=== PATIENT | female | born 1985 | race American Indian/Alaskan Native ===

== ENCOUNTER 2016-09-11 04:57 | Emergency (ER) | payer MEDICAID ==
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
[2016-09-11] MEDS ORDERED: NORCO 5/325 PO ONE ×2 (08:06→08:59)
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
[2016-09-11] MEDS ORDERED: TORADOL IM ONE (08:19)
[2016-09-11] MEDS ORDERED: BENADRYL PO ONE (08:59)
[2016-09-11] MEDS ORDERED: VALIUM PO ONE (09:03)
--- NOTE | 2016-09-11 09:09 | XRay Report ---
Bilateral rib series: Trauma, pain. The patient has a severe S-shaped scoliosis convex to the right in the thoracic spine and to the left in the thoracolumbar spine. There are no structural abnormalities identified in the vertebral bodies other than right sided wedging of the L2 body. There is no rib fracture identified and no displacement or other bone lesion. The lungs are grossly clear and well inflated. Normal mediastinal contour. Impression: No acute finding; no fracture.
--- NOTE | 2016-09-11 09:30 | XRay Report ---
FACIAL BONES, 4 views: Multiple views of the facial bones fail to show any fractures or other bony abnormalities. The maxillary sinuses are clear. IMPRESSION: Normal study.
[2016-09-11 10:07] VITALS: BP 142/85
== END 2016-09-11 10:06 | disposition home or self-care (01) ==
LOC: ED 04:57
DX: S00.81XA Abrasion of other part of head, initial encounter (principal); S00.511A Abrasion of lip, initial encounter; R07.89 Other chest pain; R07.81 Pleurodynia; M19.90 Unspecified osteoarthritis, unspecified site; F17.200 Nicotine dependence, unspecified, uncomplicated; R03.0 Elevated blood-pressure reading, without diagnosis of hypertension; Y04.8XXA Assault by other bodily force, initial encounter; Y93.89 Activity, other specified; Y99.8 Other external cause status; Y92.89 Other specified places as the place of occurrence of the external cause
CPT/HCPCS: 70150; 71110; 93005; 93010; 99283; J1885

== ENCOUNTER 2017-09-12 14:57 | Emergency (ER) | payer MEDICAID, OTHER ==
[2017-09-12 15:21] VITALS: BP 124/74
[2017-09-12 16:01] LABS: Bacteria,Urine 1+ /HPF (Negative); Bilirubin,Urine NEG (Negative); Blood,Urine NEG (Negative); Color,Urine Yellow (Yellow); HCG Qualitative,Urine Negative (Negative); Mucus,Urine FEW /HPF; Protein,Urine <15 mg/dL mg/dL (Negative)
[2017-09-12] MEDS ORDERED: TORADOL IM ONE (16:13)
[2017-09-12] MEDS ORDERED: ZITHROMAX PO ONE (16:13)
[2017-09-12] MEDS ORDERED: ROCEPHIN IM ONE (16:13)
[2017-09-12] MEDS ORDERED: XYLOCAINE 1% MPF 5 mL INFILTRATI ONE (16:13)
--- NOTE | 2017-09-12 16:20 | Emergency Department Report ---
ED Back Pain/Injury HPI - General Chief Complaint: Back Pain/Injury Stated Complaint: LOWER BACK PAIN Time Seen by Provider: 09/12/17 15:29 Source: patient Limitations: No Limitations - History of Present Illness Initial Comments: This is a 32-year-old female nontoxic, well nourished in appearance, no acute signs of distress presents to the ED with c/o of acute on chronic lower back pain. Patient stated that the past 2 days she was moving and developed this pain. Patient states has history of sciatica nerve pain which is similar symptoms as today. Patient stated she follows a pain speciality for this. Patient states that pain radiates through to his left lower extremity. Patient denies any trauma. Denies any bladder or bowel instability. Denies any fever, chills, nausea, abdominal pain, vomiting, headache, stiff neck, chest pain or shortness of breath. Patient denies any numbness or tingling. Patient also stated has vaginal discharge with foul odor. Patient stated she is concerned about STD. Denies any allergies. Past medical history includes scoliosis and arthritis. MD Complaint: back pain -: days(s) (2) Similar Symptoms Previously: Yes Radiation: left leg Severity: mild Severity scale (0 -10): 8 Quality: aching Consistency: constant Improves With: immobilization, supine, sitting upright Worsens With: movement, walking Context: while lifting, turning/twisting Associated Symptoms: denies other symptoms. denies: confusion, weakness, chest pain, numbness, difficulty walking, cough, difficulty urinating, diaphoresis, incontinence, fever/chills, constipation, headaches, abdominal pain, loss of appetite, malaise, nausea/vomiting, rash, seizure, shortness of breath, syncope - Related Data Home Medications Medication Instructions Recorded Confirmed Last Taken Xanax TAB 1 mg PO DAILY 07/08/15 07/09/15 07/09/15 08:00 HYDROcodone/ACETAMINOPHEN 10 mg PO Q4-6H PRN 07/09/15 07/09/15 07/09/15 08:00 Tablet 1 tab PO DAILY 07/09/15 07/09/15 07/09/15 08:00 Valtrex 1 g PO DAILY 07/09/15 07/09/15 07/08/15 08:00 Previous Rx's Medication Instructions Recorded Last Taken Type ALPRAZolam [Xanax TAB] 1 mg PO BID PRN #60 tab 07/11/15 Unknown Rx ALPRAZolam [Xanax TAB] 1 mg PO BID PRN #60 tablet 07/11/15 Unknown Rx Azithromycin [Zithromax Z-LORRIE] 0 mg PO DAILY #6 tab 12/01/15 Unknown Rx HYDROcodone/APAP 5-325 [[place] 1 - 2 each PO Q6HR PRN #10 tablet 12/01/15 Unknown Rx 5/325] Zolpidem [Ambien] 5 mg PO QHS PRN #5 tablet 12/01/15 Unknown Rx Naproxen [Naprosyn] 500 mg PO BID PRN #20 tablet 09/11/16 Unknown Rx Cyclobenzaprine [Flexeril] 10 mg PO QHS PRN #7 tablet 09/12/17 Unknown Rx Ibuprofen [Motrin] 600 mg PO Q8H PRN #30 tablet 09/12/17 Unknown Rx metroNIDAZOLE [Flagyl] 500 mg PO Q12HR #14 tab 09/12/17 Unknown Rx Allergies Allergy/AdvReac Type Severity Reaction Status Date / Time No Known Allergies Allergy Verified 12/30/14 14:26 ED Review of Systems ROS: Stated complaint: LOWER BACK PAIN Other details as noted in HPI Constitutional: denies: chills, fever Eyes: denies: eye pain, eye discharge, vision change ENT: denies: ear pain, throat pain Respiratory: denies: cough, shortness of breath, wheezing Cardiovascular: denies: chest pain, palpitations Endocrine: no symptoms reported Gastrointestinal: denies: abdominal pain, nausea, diarrhea Genitourinary: denies: urgency, dysuria, discharge Musculoskeletal: back pain. denies: joint swelling, arthralgia Skin: denies: rash, lesions Neurological: denies: headache, weakness, paresthesias Psychiatric: denies: anxiety, depression Hematological/Lymphatic: denies: easy bleeding, easy bruising ED Past Medical Hx - Past Medical History Hx Hypertension: No Hx Congestive Heart Failure: No Hx Diabetes: No Hx Deep Vein Thrombosis: No Hx Renal Disease: No Hx Sickle Cell Disease: No Hx Arthritis: Yes (RA) Hx Seizures: No Hx Psychiatric Treatment: Yes (panic attacks,anxiety) Hx Asthma: No Hx COPD: No Hx HIV: No Additional medical history: DJD, scoliosis, A1 - Surgical History Past Surgical History?: No - Social History Smoking Status: Current Every Day Smoker Substance Use Type: Alcohol - Medications Home Medications: Home Medications Medication Instructions Recorded Confirmed Last Taken Type Xanax TAB 1 mg PO DAILY 07/08/15 07/09/15 07/09/15 08:00 History HYDROcodone/ACETAMINOPHEN 10 mg PO Q4-6H PRN 07/09/15 07/09/15 07/09/15 08:00 History Tablet 1 tab PO DAILY 07/09/15 07/09/15 07/09/15 08:00 History Valtrex 1 g PO DAILY 07/09/15 07/09/15 07/08/15 08:00 History ALPRAZolam [Xanax TAB] 1 mg PO BID PRN #60 tab 07/11/15 Unknown Rx ALPRAZolam [Xanax TAB] 1 mg PO BID PRN #60 tablet 07/11/15 Unknown Rx Azithromycin [Zithromax Z-LORRIE] 0 mg PO DAILY #6 tab 12/01/15 Unknown Rx HYDROcodone/APAP 5-325 [[place] 1 - 2 each PO Q6HR PRN #10 tablet 12/01/15 Unknown Rx 5/325] Zolpidem [Ambien] 5 mg PO QHS PRN #5 tablet 12/01/15 Unknown Rx Naproxen [Naprosyn] 500 mg PO BID PRN #20 tablet 09/11/16 Unknown Rx Cyclobenzaprine [Flexeril] 10 mg PO QHS PRN #7 tablet 09/12/17 Unknown Rx Ibuprofen [Motrin] 600 mg PO Q8H PRN #30 tablet 09/12/17 Unknown Rx metroNIDAZOLE [Flagyl] 500 mg PO Q12HR #14 tab 09/12/17 Unknown Rx ED Physical Exam - General Limitations: No Limitations General appearance: alert, in no apparent distress - Head Head exam: Present: atraumatic, normocephalic - Eye Eye exam: Present: normal appearance Pupils: Present: normal accommodation - ENT ENT exam: Present: normal exam, mucous membranes moist - Neck Neck exam: Present: normal inspection, full ROM. Absent: tenderness, meningismus, lymphadenopathy - Respiratory Respiratory exam: Present: normal lung sounds bilaterally. Absent: respiratory distress, wheezes, rales, rhonchi, stridor, chest wall tenderness, accessory muscle use, decreased breath sounds, prolonged expiratory - Cardiovascular Cardiovascular Exam: Present: regular rate, normal rhythm, normal heart sounds. Absent: irregular rhythm, systolic murmur, diastolic murmur, rubs, gallop - GI/Abdominal GI/Abdominal exam: Present: soft, normal bowel sounds. Absent: distended, tenderness, guarding, rebound, rigid, diminished bowel sounds - Rectal Rectal exam: Present: deferred - Extremities Exam Extremities exam: Present: normal inspection, full ROM, normal capillary refill - Back Exam Back exam: Present: normal inspection, full ROM, paraspinal tenderness (lumbar region). Absent: tenderness, CVA tenderness (R), CVA tenderness (L), muscle spasm, vertebral tenderness, rash noted - Expanded Back Exam Expanded Back exam: Absent: saddle anesthesia Back exam: Negative Straight Leg Raising: Left, Right - Neurological Exam Neurological exam: Present: alert, oriented X3, normal gait - Psychiatric Psychiatric exam: Present: normal affect, normal mood - Skin Skin exam: Present: warm, dry, intact, normal color. Absent: rash ED Course Vital Signs 09/12/17 15:16 Temperature 98.4 F Pulse Rate 97 H Respiratory 16 Rate Blood Pressure 124/74 O2 Sat by Pulse 98 Oximetry - Reevaluation(s) Reevaluation #1: 09/12/17 16:19 Patient is speaking in full sentences with no signs of distress noted. ED Medical Decision Making - Medical Decision Making This is a 32-year-old female that presents with exacerbation chronic of back pain and vaginal discharge. Patient is stable was examined by me. Patient refused a pelvic exam and stated she just wants to be treated empirically because she has to go to work. I will treat patient with azith and rocephine as she stated she is concerned about STD and also Flagyl at discharge. There is no spinal tenderness. There is no cauda equina syndrome during examination. No bladder or bowel instability. Patient received Toradol 60 mg IM in the ED which preceded his symptoms has resolved and subsided. Patient is discharged with muscle relaxant and Motrin. Patient was instructed not to operate any machinery while taking muscle relaxant as they cause her drowsiness. Patient was referred to Follow-up with a primary care doctor in 3-5 days or if symptoms worsen and continue return to emergency room as soon as possible. At time of discharge, the patient does not seem toxic or ill in appearance. No acute signs of distress noted. Patient agrees to discharge treatment plan of care. No further questions noted by the patient. This chart is dictated with using [employer] Critical care attestation.: If time is entered above; I have spent that time in minutes in the direct care of this critically ill patient, excluding procedure time. ED Disposition Clinical Impression: Exacerbation of chronic back pain, Vaginal discharge Disposition: TO HOME OR SELFCARE Is pt being admited?: No Does the pt Need Aspirin: No Condition: Stable Instructions: Chronic Back Pain (ED), Metronidazole (By mouth), Cyclobenzaprine (By mouth), Ibuprofen (By mouth) Additional Instructions: Follow-up with your primary care doctor in 3-5 days or if symptoms worsen such as bladder or bowel stability, chest pain, short of breath, numbness or tingling sensation in extremities, headache, dizziness, visual changes, nausea vomiting, or abdominal pain, return back to emergency room as was possible. Take ibuprofen and Flexeril as prescribed. Do not operate heavy machinery while taking Flexeril due to sedation Do not consume ant alcohol while taking antibiotics Prescriptions: Cyclobenzaprine [Flexeril] 10 mg PO QHS PRN #7 tablet PRN Reason: Muscle Spasm Ibuprofen [Motrin] 600 mg PO Q8H PRN #30 tablet PRN Reason: Pain metroNIDAZOLE [Flagyl] 500 mg PO Q12HR #14 tab Referrals: PRIMARY CARE, [Primary Care Provider] - 3-5 Days NATASHA DASILVA MD [Staff Physician] - 3-5 Days [facility] [Outside] - 3-5 Days [facility] [Outside] - 3-5 Days Forms: Work/School Release Form(ED)
== END 2017-09-12 16:36 | disposition home or self-care (01) ==
LOC: ED 14:57
DX: M54.5 Low back pain (principal); G89.29 Other chronic pain; N89.8 Other specified noninflammatory disorders of vagina; M06.9 Rheumatoid arthritis, unspecified; F41.0 Panic disorder [episodic paroxysmal anxiety]; F17.200 Nicotine dependence, unspecified, uncomplicated
CPT/HCPCS: 81001; 81025; 96372; 99283; J0696; J1885

== ENCOUNTER 2019-03-27 12:21 | Emergency (ER) | payer SELFPAY ==
[2019-03-27 12:31] VITALS: BP 146/102
--- NOTE | 2019-03-27 12:55 | Emergency Department Report ---
ED ENT HPI - General Chief complaint: Sore Throat Stated complaint: CHEST PAIN/LIGHT HEADED Time Seen by Provider: 03/27/19 12:50 Source: patient Mode of arrival: Ambulatory Limitations: No Limitations - History of Present Illness Initial comments: pt is a 33 yo female who presents to the ED with c/o cough that began three days ago. she states she has associated mucus production. she states she has associated sore throat after frequent cough, nasal and chest congestion, rhinorrhea. she denies any fever. no pmhx. no allergies to meds. she is a daily smoker. - Related Data Home Medications Medication Instructions Recorded Confirmed Last Taken Xanax TAB 1 mg PO DAILY 07/08/15 07/09/15 07/09/15 08:00 HYDROcodone/ACETAMINOPHEN 10 mg PO Q4-6H PRN 07/09/15 07/09/15 07/09/15 08:00 Tablet 1 tab PO DAILY 07/09/15 07/09/15 07/09/15 08:00 Valtrex 1 g PO DAILY 07/09/15 07/09/15 07/08/15 08:00 Previous Rx's Medication Instructions Recorded Last Taken Type ALPRAZolam [Xanax TAB] 1 mg PO BID PRN #60 tab 07/11/15 Unknown Rx ALPRAZolam [Xanax TAB] 1 mg PO BID PRN #60 tablet 07/11/15 Unknown Rx Azithromycin [Zithromax Z-LORRIE] 0 mg PO DAILY #6 tab 12/01/15 Unknown Rx HYDROcodone/APAP 5-325 [[place] 1 - 2 each PO Q6HR PRN #10 tablet 12/01/15 Unknown Rx 5/325] Zolpidem [Ambien] 5 mg PO QHS PRN #5 tablet 12/01/15 Unknown Rx Naproxen [Naprosyn] 500 mg PO BID PRN #20 tablet 09/11/16 Unknown Rx Cyclobenzaprine [Flexeril] 10 mg PO QHS PRN #7 tablet 09/12/17 Unknown Rx Ibuprofen [Motrin] 600 mg PO Q8H PRN #30 tablet 09/12/17 Unknown Rx metroNIDAZOLE [Flagyl] 500 mg PO Q12HR #14 tab 09/12/17 Unknown Rx ALBUTEROL Inhaler (OR & NICU) 2 puff IH QID PRN #8.5 gram 03/27/19 Unknown Rx [ProAir HFA Inhaler] Azithromycin [Zithromax TAB] 250 mg PO QDAY 5 Days #6 tablet 03/27/19 Unknown Rx Prednisone [predniSONE 10 mg 10 mg PO .TAPER #1 tab.ds.pk 03/27/19 Unknown Rx (6-Day Pack, 21 Tabs)] Allergies Allergy/AdvReac Type Severity Reaction Status Date / Time No Known Allergies Allergy Verified 03/27/19 12:29 ED Dental HPI - General Chief complaint: Sore Throat Stated complaint: CHEST PAIN/LIGHT HEADED Time Seen by Provider: 03/27/19 12:50 Source: patient Mode of arrival: Ambulatory Limitations: No Limitations - Related Data Home Medications Medication Instructions Recorded Confirmed Last Taken Xanax TAB 1 mg PO DAILY 07/08/15 07/09/15 07/09/15 08:00 HYDROcodone/ACETAMINOPHEN 10 mg PO Q4-6H PRN 07/09/15 07/09/15 07/09/15 08:00 Tablet 1 tab PO DAILY 07/09/15 07/09/15 07/09/15 08:00 Valtrex 1 g PO DAILY 07/09/15 07/09/15 07/08/15 08:00 Previous Rx's Medication Instructions Recorded Last Taken Type ALPRAZolam [Xanax TAB] 1 mg PO BID PRN #60 tab 07/11/15 Unknown Rx ALPRAZolam [Xanax TAB] 1 mg PO BID PRN #60 tablet 07/11/15 Unknown Rx Azithromycin [Zithromax Z-LORRIE] 0 mg PO DAILY #6 tab 12/01/15 Unknown Rx HYDROcodone/APAP 5-325 [[place] 1 - 2 each PO Q6HR PRN #10 tablet 12/01/15 Unknown Rx 5/325] Zolpidem [Ambien] 5 mg PO QHS PRN #5 tablet 12/01/15 Unknown Rx Naproxen [Naprosyn] 500 mg PO BID PRN #20 tablet 09/11/16 Unknown Rx Cyclobenzaprine [Flexeril] 10 mg PO QHS PRN #7 tablet 09/12/17 Unknown Rx Ibuprofen [Motrin] 600 mg PO Q8H PRN #30 tablet 09/12/17 Unknown Rx metroNIDAZOLE [Flagyl] 500 mg PO Q12HR #14 tab 09/12/17 Unknown Rx ALBUTEROL Inhaler (OR & NICU) 2 puff IH QID PRN #8.5 gram 03/27/19 Unknown Rx [ProAir HFA Inhaler] Azithromycin [Zithromax TAB] 250 mg PO QDAY 5 Days #6 tablet 03/27/19 Unknown Rx Prednisone [predniSONE 10 mg 10 mg PO .TAPER #1 tab.ds.pk 03/27/19 Unknown Rx (6-Day Pack, 21 Tabs)] Allergies Allergy/AdvReac Type Severity Reaction Status Date / Time No Known Allergies Allergy Verified 03/27/19 12:29 ED Review of Systems ROS: Stated complaint: CHEST PAIN/LIGHT HEADED Other details as noted in HPI Comment: All other systems reviewed and negative ED Past Medical Hx - Past Medical History Hx Hypertension: No Hx Congestive Heart Failure: No Hx Diabetes: No Hx Deep Vein Thrombosis: No Hx Renal Disease: No Hx Sickle Cell Disease: No Hx Arthritis: Yes (RA) Hx Seizures: No Hx Psychiatric Treatment: Yes (panic attacks,anxiety) Hx Asthma: No Hx COPD: No Hx HIV: No Additional medical history: DJD, scoliosis, A1 - Social History Smoking Status: Current Every Day Smoker Substance Use Type: Alcohol - Medications Home Medications: Home Medications Medication Instructions Recorded Confirmed Last Taken Type Xanax TAB 1 mg PO DAILY 07/08/15 07/09/15 07/09/15 08:00 History HYDROcodone/ACETAMINOPHEN 10 mg PO Q4-6H PRN 07/09/15 07/09/15 07/09/15 08:00 History Tablet 1 tab PO DAILY 07/09/15 07/09/15 07/09/15 08:00 History Valtrex 1 g PO DAILY 07/09/15 07/09/15 07/08/15 08:00 History ALPRAZolam [Xanax TAB] 1 mg PO BID PRN #60 tab 07/11/15 Unknown Rx ALPRAZolam [Xanax TAB] 1 mg PO BID PRN #60 tablet 07/11/15 Unknown Rx Azithromycin [Zithromax Z-LORRIE] 0 mg PO DAILY #6 tab 12/01/15 Unknown Rx HYDROcodone/APAP 5-325 [[place] 1 - 2 each PO Q6HR PRN #10 tablet 12/01/15 Unknown Rx 5/325] Zolpidem [Ambien] 5 mg PO QHS PRN #5 tablet 12/01/15 Unknown Rx Naproxen [Naprosyn] 500 mg PO BID PRN #20 tablet 09/11/16 Unknown Rx Cyclobenzaprine [Flexeril] 10 mg PO QHS PRN #7 tablet 09/12/17 Unknown Rx Ibuprofen [Motrin] 600 mg PO Q8H PRN #30 tablet 09/12/17 Unknown Rx metroNIDAZOLE [Flagyl] 500 mg PO Q12HR #14 tab 09/12/17 Unknown Rx ALBUTEROL Inhaler (OR & NICU) 2 puff IH QID PRN #8.5 gram 03/27/19 Unknown Rx [ProAir HFA Inhaler] Azithromycin [Zithromax TAB] 250 mg PO QDAY 5 Days #6 tablet 03/27/19 Unknown Rx Prednisone [predniSONE 10 mg 10 mg PO .TAPER #1 tab.ds.pk 03/27/19 Unknown Rx (6-Day Pack, 21 Tabs)] ED Physical Exam - General Limitations: No Limitations General appearance: alert, in no apparent distress - Head Head exam: Present: atraumatic, normocephalic - Eye Eye exam: Present: normal appearance - ENT ENT exam: Present: normal orophraynx, mucous membranes moist, TM's normal bilaterally, normal external ear exam, other (pale turbinates) - Respiratory Respiratory exam: Present: wheezes (very mild slight wheeze bilaterally), rhonchi (clears with coughing). Absent: respiratory distress - Cardiovascular Cardiovascular Exam: Present: regular rate, normal rhythm, normal heart sounds. Absent: systolic murmur, diastolic murmur, rubs, gallop - Neurological Exam Neurological exam: Present: alert, oriented X3 - Psychiatric Psychiatric exam: Present: normal affect, normal mood - Skin Skin exam: Present: warm, dry, intact ED Course Vital Signs 03/27/19 12:30 Temperature 98.6 F Pulse Rate 96 H Respiratory 18 Rate Blood Pressure 146/102 O2 Sat by Pulse 97 Oximetry ED Medical Decision Making - Medical Decision Making pt is a 33 yo female who presents to the ED with c/o cough that began three days ago. she states she has associated mucus production. she states she has associated sore throat after frequent cough, nasal and chest congestion, rhinorrhea. she denies any fever. no pmhx. no allergies to meds. she is a daily smoker. vitals with mildly elevated BP. on exam: pale turbinates, very mild slight wheeze bilaterally, rhonchi bilaterally which clears with coughing. examination consistent with acute bronchitis. pt given precription for zpak, prednisone taper, and albuterol inhaler. advised pt to please take medication as prescribed. increase your fluid intake over the next several days. may take tylenol or ibuprofen for any discomfort. may drink warm tea, eat warm soup broth, may do warm salt water gargles. follow up with a primary care doctor in the next 2-3 days. please quit smoking tobacco. reutrn to the emergency room for any new or worsening symptoms. - Differential Diagnosis PNA, bronchitis, URI, viral syndrome, otitis, sinusitis Critical care attestation.: If time is entered above; I have spent that time in minutes in the direct care of this critically ill patient, excluding procedure time. ED Disposition Clinical Impression: Tobacco abuse Acute bronchitis Qualifiers: Bronchitis organism: unspecified organism Qualified Code(s): J20.9 - Acute bronchitis, unspecified Disposition: DC-01 TO HOME OR SELFCARE Is pt being admited?: No Does the pt Need Aspirin: No Condition: Stable Instructions: How to Stop Smoking (ED), Acute Bronchitis (ED) Additional Instructions: please take medication as prescribed. increase your fluid intake over the next several days. may take tylenol or ibuprofen for any discomfort. may drink warm tea, eat warm soup broth, may do warm salt water gargles. follow up with a primary care doctor in the next 2-3 days. please quit smoking tobacco. reutrn to the emergency room for any new or worsening symptoms. Prescriptions: Prednisone [predniSONE 10 mg (6-Day Pack, 21 Tabs)] 10 mg PO .TAPER #1 tab.ds.pk ALBUTEROL Inhaler (OR & NICU) [ProAir HFA Inhaler] 2 puff IH QID PRN #8.5 gram PRN Reason: Shortness Of Breath Azithromycin [Zithromax TAB] 250 mg PO QDAY 5 Days #6 tablet Referrals: [facility] [Provider Group] - 2-3 Days Forms: Work/School Release Form(ED) Time of Disposition: 12:57 Print Language: TELUGU
== END 2019-03-27 13:35 | disposition home or self-care (01) ==
LOC: ED 12:21
DX: J20.9 Acute bronchitis, unspecified (principal); F17.200 Nicotine dependence, unspecified, uncomplicated; F41.0 Panic disorder [episodic paroxysmal anxiety]; F10.10 Alcohol abuse, uncomplicated; Z79.899 Other long term (current) drug therapy

== ENCOUNTER 2020-07-31 10:43 | Emergency (ER) | payer MEDICAID ==
[2020-07-31 11:14] VITALS: BP 144/81
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
== END 2020-07-31 13:58 | disposition home or self-care (01) ==
LOC: ED 10:43
DX: M62.838 Other muscle spasm (principal); M19.91 Primary osteoarthritis, unspecified site; F17.200 Nicotine dependence, unspecified, uncomplicated; Z79.1 Long term (current) use of non-steroidal anti-inflammatories (NSAID); Z79.2 Long term (current) use of antibiotics; Z79.899 Other long term (current) drug therapy
CPT/HCPCS: 99281

== ENCOUNTER 2020-09-08 09:47 | Emergency (ER) | payer MEDICAID, OTHER ==
[2020-09-08 09:59] VITALS: BP 142/112
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
== END 2020-09-08 11:41 | disposition home or self-care (01) ==
LOC: ED 09:47
DX: S13.4XXA Sprain of ligaments of cervical spine, initial encounter (principal); S16.1XXA Strain of muscle, fascia and tendon at neck level, initial encounter; I10 Essential (primary) hypertension; M19.91 Primary osteoarthritis, unspecified site; F17.200 Nicotine dependence, unspecified, uncomplicated; Z79.1 Long term (current) use of non-steroidal anti-inflammatories (NSAID); Z79.2 Long term (current) use of antibiotics; Z79.899 Other long term (current) drug therapy; V89.2XXA Person injured in unspecified motor-vehicle accident, traffic, initial encounter; Y93.89 Activity, other specified; Y92.410 Unspecified street and highway as the place of occurrence of the external cause; Y99.8 Other external cause status
CPT/HCPCS: 72040

== ENCOUNTER 2021-07-21 09:56 | Emergency (ER) | payer MEDICAID ==
[2021-07-21] MEDS ORDERED: SODIUM CHLORIDE 0.9% 1000 ML 1,000 ML IV ONE (11:59)
[2021-07-21 12:14] LABS: Bacteria,Urine 1+ /HPF (Negative); Bilirubin,Urine NEG (Negative); Blood,Urine NEG (Negative); Color,Urine Yellow (Yellow); Mucus,Urine FEW /HPF; Protein,Urine <15 mg/dL mg/dL (Negative); Urobilinogen,Urine < 2.0 mg/dL (<2.0)
[2021-07-21 12:15] LABS: HCG Qualitative,Urine Negative (Negative)
[2021-07-21 12:56] LABS: Basophils % (Auto) 0.6 % (0.0-1.8); Eosinophils # (Auto) 0.3 K/mm3 (0.0-0.4); Eosinophils % (Auto) 3.1 % (0.0-4.3); Hematocrit 40.7 % (30.3-42.9); Hemoglobin 13.3 gm/dl (10.1-14.3); Lymphocytes # (Auto) 2.2 K/mm3 (1.2-5.4); Lymphocytes % (Auto) 27.2 % (13.4-35.0); Mean Corpuscular HGB Conc 33 % (30-34); Mean Corpuscular Volume 90 fl (79-97); Monocytes # (Auto) 0.7 K/mm3 (0.0-0.8); Monocytes % (Auto) 8.1 % (0.0-7.3); Platelet Count 302 K/mm3 (140-440)
[2021-07-21 13:17] LABS: BUN/Creatinine Ratio 12; Blood Urea Nitrogen 11 mg/dL (7-17); Calcium 9.4 mg/dL (8.4-10.2); Hemolysis Index 13
[2021-07-21] MEDS ORDERED: cloNIDine 0.1 MG TAB PO ONE (14:07)
--- NOTE | 2021-07-21 14:17 | Emergency Department Report ---
ED Abdominal Pain HPI - General Chief Complaint: Abdominal Pain Stated Complaint: HEADACHE/LOWWER BACK PAIN/ ABD PAIN Time Seen by Provider: 07/21/21 11:54 Source: patient Mode of arrival: Ambulatory Limitations: No Limitations - History of Present Illness Initial Comments: pt presents to ed with complaint of lower abd pain no fever, some nausea MD Complaint: abdominal pain -: days(s) Location: suprapubic Severity scale (0 -10): 2 Quality: aching Consistency: intermittent Improves With: nothing - Related Data Home Medications Medication Instructions Recorded Confirmed Last Taken Xanax TAB 1 mg PO DAILY 07/08/15 07/09/15 07/09/15 08:00 HYDROcodone/ACETAMINOPHEN 10 mg PO Q4-6H PRN 07/09/15 07/09/15 07/09/15 08:00 Tablet 1 tab PO DAILY 07/09/15 07/09/15 07/09/15 08:00 Valtrex 1 g PO DAILY 07/09/15 07/09/15 07/08/15 08:00 Previous Rx's Medication Instructions Recorded Last Taken Type ALPRAZolam [Xanax TAB] 1 mg PO BID PRN #60 tab 07/11/15 Unknown Rx ALPRAZolam [Xanax TAB] 1 mg PO BID PRN #60 tablet 07/11/15 Unknown Rx Azithromycin [Zithromax Z-LORRIE] 0 mg PO DAILY #6 tab 12/01/15 Unknown Rx HYDROcodone/APAP 5-325 [[place] 1 - 2 each PO Q6HR PRN #10 tablet 12/01/15 Unknown Rx 5/325] Zolpidem [Ambien] 5 mg PO QHS PRN #5 tablet 12/01/15 Unknown Rx Naproxen [Naprosyn] 500 mg PO BID PRN #20 tablet 09/11/16 Unknown Rx Cyclobenzaprine [Flexeril] 10 mg PO QHS PRN #7 tablet 09/12/17 Unknown Rx Ibuprofen [Motrin] 600 mg PO Q8H PRN #30 tablet 09/12/17 Unknown Rx metroNIDAZOLE [Flagyl] 500 mg PO Q12HR #14 tab 09/12/17 Unknown Rx Albuterol Mdi (or & Nicu Only) 2 puff IH QID PRN #8.5 gram 03/27/19 Unknown Rx [ProAir HFA Inhaler] Azithromycin [Zithromax TAB] 250 mg PO QDAY 5 Days #6 tablet 03/27/19 Unknown Rx Prednisone [predniSONE 10 mg 10 mg PO .TAPER #1 tab.ds.pk 03/27/19 Unknown Rx (6-Day Pack, 21 Tabs)] Naproxen 500 mg PO BID PRN #20 tablet 07/31/20 Unknown Rx methocarbamoL [Methocarbamol] 1,500 mg PO TID PRN #30 tablet 07/31/20 Unknown Rx Cyclobenzaprine [Flexeril] 10 mg PO QHS PRN #10 tablet 09/08/20 Unknown Rx Naproxen 500 mg PO Q12H PRN #12 tablet 09/08/20 Unknown Rx amLODIPine 10 mg PO DAILY #30 tab 09/08/20 Unknown Rx Ciprofloxacin HCl 500 mg PO BID #14 07/21/21 Unknown Rx atenoloL [Tenormin] 25 mg PO DAILY #30 tab 07/21/21 Unknown Rx Allergies Allergy/AdvReac Type Severity Reaction Status Date / Time No Known Allergies Allergy Verified 03/27/19 12:29 ED Review of Systems ROS: Stated complaint: HEADACHE/LOWWER BACK PAIN/ ABD PAIN Other details as noted in HPI Constitutional: denies: chills, fever Eyes: denies: eye pain, eye discharge, vision change ENT: denies: ear pain, throat pain Respiratory: denies: cough, shortness of breath, wheezing Cardiovascular: denies: chest pain, palpitations Endocrine: no symptoms reported Gastrointestinal: denies: abdominal pain, nausea, diarrhea Genitourinary: denies: urgency, dysuria, discharge Musculoskeletal: denies: back pain, joint swelling, arthralgia Skin: denies: rash, lesions Neurological: denies: headache, weakness, paresthesias Psychiatric: denies: anxiety, depression Hematological/Lymphatic: denies: easy bleeding, easy bruising ED Past Medical Hx - Past Medical History Hx Hypertension: No Hx Congestive Heart Failure: No Hx Diabetes: No Hx Deep Vein Thrombosis: No Hx Renal Disease: No Hx Sickle Cell Disease: No Hx Arthritis: Yes (RA) Hx Seizures: No Hx Psychiatric Treatment: Yes (panic attacks,anxiety) Hx Asthma: No Hx COPD: No Hx HIV: No Additional medical history: DJD, scoliosis, A1 - Surgical History Past Surgical History?: No - Social History Smoking Status: Current Every Day Smoker Substance Use Type: None - Medications Home Medications: Home Medications Medication Instructions Recorded Confirmed Last Taken Type Xanax TAB 1 mg PO DAILY 07/08/15 07/09/15 07/09/15 08:00 History HYDROcodone/ACETAMINOPHEN 10 mg PO Q4-6H PRN 07/09/15 07/09/15 07/09/15 08:00 History Tablet 1 tab PO DAILY 07/09/15 07/09/15 07/09/15 08:00 History Valtrex 1 g PO DAILY 07/09/15 07/09/15 07/08/15 08:00 History ALPRAZolam [Xanax TAB] 1 mg PO BID PRN #60 tab 07/11/15 Unknown Rx ALPRAZolam [Xanax TAB] 1 mg PO BID PRN #60 tablet 07/11/15 Unknown Rx Azithromycin [Zithromax Z-LORRIE] 0 mg PO DAILY #6 tab 12/01/15 Unknown Rx HYDROcodone/APAP 5-325 [[place] 1 - 2 each PO Q6HR PRN #10 tablet 12/01/15 Unknow n Rx 5/325] Zolpidem [Ambien] 5 mg PO QHS PRN #5 tablet 12/01/15 Unknown Rx Naproxen [Naprosyn] 500 mg PO BID PRN #20 tablet 09/11/16 Unknown Rx Cyclobenzaprine [Flexeril] 10 mg PO QHS PRN #7 tablet 09/12/17 Unknown Rx Ibuprofen [Motrin] 600 mg PO Q8H PRN #30 tablet 09/12/17 Unknown Rx metroNIDAZOLE [Flagyl] 500 mg PO Q12HR #14 tab 09/12/17 Unknown Rx Albuterol Mdi (or & Nicu Only) 2 puff IH QID PRN #8.5 gram 03/27/19 Unknown Rx [ProAir HFA Inhaler] Azithromycin [Zithromax TAB] 250 mg PO QDAY 5 Days #6 tablet 03/27/19 Unknown Rx Prednisone [predniSONE 10 mg 10 mg PO .TAPER #1 tab.ds.pk 03/27/19 Unknown Rx (6-Day Pack, 21 Tabs)] Naproxen 500 mg PO BID PRN #20 tablet 07/31/20 Unknown Rx methocarbamoL [Methocarbamol] 1,500 mg PO TID PRN #30 tablet 07/31/20 Unknown Rx Cyclobenzaprine [Flexeril] 10 mg PO QHS PRN #10 tablet 09/08/20 Unknown Rx Naproxen 500 mg PO Q12H PRN #12 tablet 09/08/20 Unknown Rx amLODIPine 10 mg PO DAILY #30 tab 09/08/20 Unknown Rx Ciprofloxacin HCl 500 mg PO BID #14 07/21/21 Unknown Rx atenoloL [Tenormin] 25 mg PO DAILY #30 tab 07/21/21 Unknown Rx ED Physical Exam - General Limitations: No Limitations General appearance: alert, in no apparent distress - Head Head exam: Present: atraumatic, normocephalic - Eye Eye exam: Present: normal appearance - ENT ENT exam: Present: mucous membranes moist - Neck Neck exam: Present: normal inspection - Respiratory Respiratory exam: Present: normal lung sounds bilaterally. Absent: respiratory distress - Cardiovascular Cardiovascular Exam: Present: regular rate, normal rhythm. Absent: systolic murmur, diastolic murmur, rubs, gallop - GI/Abdominal GI/Abdominal exam: Present: soft, normal bowel sounds - Extremities Exam Extremities exam: Present: normal inspection - Back Exam Back exam: Present: normal inspection - Neurological Exam Neurological exam: Present: alert, oriented X3 - Psychiatric Psychiatric exam: Present: normal affect, normal mood - Skin Skin exam: Present: warm, dry, intact, normal color. Absent: rash ED Course Vital Signs 07/21/21 07/21/21 07/21/21 10:07 11:52 11:59 Temperature 98.4 F Pulse Rate 120 H Respiratory 16 18 Rate Blood Pressure Blood Pressure 180/125 [Left] O2 Sat by Pulse 99 98 98 Oximetry 07/21/21 07/21/21 07/21/21 12:00 12:15 12:31 Temperature Pulse Rate Respiratory Rate Blood Pressure 158/112 158/112 150/103 Blood Pressure [Left] O2 Sat by Pulse 100 99 99 Oximetry 07/21/21 07/21/21 07/21/21 12:45 13:01 13:15 Temperature Pulse Rate Respiratory Rate Blood Pressure 150/103 154/102 154/102 Blood Pressure [Left] O2 Sat by Pulse 99 97 100 Oximetry 07/21/21 07/21/21 07/21/21 13:31 13:45 14:01 Temperature Pulse Rate Respiratory Rate Blood Pressure 168/109 168/109 174/114 Blood Pressure [Left] O2 Sat by Pulse 100 99 100 Oximetry ED Medical Decision Making - Lab Data Result diagrams: 07/21/21 12:21 07/21/21 12:21 - Radiology Data Radiology results: report reviewed - Medical Decision Making work up showed normal wbc , ua showed uti abx given no fever no rash BP is elevated pt used to take BP meds when she was , clonidine given and will start with BPO meds OP till she sees her PCP Critical care attestation.: If time is entered above; I have spent that time in minutes in the direct care of this critically ill patient, excluding procedure time. ED Disposition Clinical Impression: UTI (urinary tract infection), Uncontrolled hypertension Disposition: 01 HOME / SELF CARE / HOMELESS Is pt being admited?: No Does the pt Need Aspirin: No Condition: Stable Instructions: Abdominal Pain (ED), Hypertension (ED), Antibiotic Medicine, Adult, [id number], Urinary Tract Infection, Adult Referrals: PRIMARY CARE, [Primary Care Provider] - 3-5 Days
[2021-07-21 15:31] VITALS: BP 162/112
== END 2021-07-21 15:47 | disposition home or self-care (01) ==
LOC: ED 09:56
DX: N39.0 Urinary tract infection, site not specified (principal); I10 Essential (primary) hypertension; F17.200 Nicotine dependence, unspecified, uncomplicated
CPT/HCPCS: 36415; 80048; 81001; 81025; 82150; 83690; 84703; 85025; 87086; 96360; 99283; J7030; Q0162

== ENCOUNTER 2021-08-07 10:46 | Emergency (ER) | payer MEDICAID ==
[2021-08-07 11:46] VITALS: BP 140/94
--- NOTE | 2021-08-07 11:52 | Emergency Department Report ---
ED Dysuria HPI - HPI Chief Complaint: Abdominal Pain Stated Complaint: LOWER RT AB/BCK PAIN Time Seen by Provider: 08/07/21 11:49 Location of Discomfort: Suprapubic Severity: Mild Symptoms: Dysuria: No, Frequency: No, Suprapubic Pain: Yes, Flank Pain: No, Fever: No, Hematuria: No, Abdominal Pain: No, Previous UTI's: Yes Other History: Patient is a 36-year-old female that comes to the emergency room with left side pain. She was evaluated for this last week in the ER. She was treated for UTI. She states that her dysuria has gone away but she continues to have this lower abdominal pain. She does have an appointment with her SALES CONSULTING DIRECTOR as recommended but is not till the of this month. She has no nausea vomiting or diarrhea. No fever or chills. She is ambulatory without difficulty. When asked when her last menstrual was she said the end of last month. She states that she did buy a home test but she did not take it yet. ED Review of Systems ROS: Stated complaint: LOWER RT AB/BCK PAIN Other details as noted in HPI Comment: All other systems reviewed and negative ED Past Medical Hx - Past Medical History Previous Medical History?: Yes Hx Hypertension: Yes Hx Congestive Heart Failure: No Hx Diabetes: No Hx Deep Vein Thrombosis: No Hx Renal Disease: No Hx Sickle Cell Disease: No Hx Arthritis: Yes (RA) Hx Seizures: No Hx Psychiatric Treatment: Yes (panic attacks,anxiety) Hx Asthma: No Hx COPD: No Hx HIV: No Additional medical history: DJD, scoliosis, A1 - Surgical History Past Surgical History?: No - Family History Family history: no significant - Social History Smoking Status: Never Smoker Substance Use Type: None - Medications Home Medications: Home Medications Medication Instructions Recorded Confirmed Last Taken Type Valtrex 1 g PO DAILY 07/09/15 07/09/15 07/08/15 08:00 History atenoloL [Tenormin] 25 mg PO DAILY #30 tab 07/21/21 Unknown Rx Sulfamethoxazole/Trimethoprim 1 each PO BID #10 tablet 08/07/21 Unknown Rx [Bactrim DS TAB] Dysuria Exam - Exam General: Vital signs noted. No distress. Alert and acting appropriately. Exam: Yes Moist Mucous Membranes, No CVA Tenderness, No Abdominal Tenderness, No Rigidity or Guarding ED Course Vital Signs 08/07/21 11:42 Temperature 98.3 F Pulse Rate 71 Respiratory 18 Rate Blood Pressure 140/94 Blood Pressure 140/94 [Right] O2 Sat by Pulse 99 Oximetry ED Medical Decision Making - Medical Decision Making Lab Results 08/07/21 Range/Units Unknown Urine Color Straw (Yellow) Urine Turbidity Slightly cloudy (Clear) Urine pH 6.5 (5.0-7.0) Ur Specific [place] 1.025 (1.003-1.030) Urine Protein <15 mg/dl (Negative) mg/dL Urine Glucose (UA) Negative (Negative) mg/dL Urine Ketones Negative (Negative) mg/dL Urine Blood Small A (Negative) Urine Nitrite Negative (Negative) Ur Reducing Substances Not Reportable Urine Bilirubin Negative (Negative) Urine Ictotest Not Reportable Urine Urobilinogen < 2.0 (<2.0) mg/dL Ur Leukocyte Esterase Moderate (Negative) Urine WBC (Auto) 7.0 H (0.0-6.0) /HPF Urine RBC (Auto) 2.0 (0.0-6.0) /HPF U Epithel Cells (Auto) 31.0 H (0-13.0) /HPF Urine Mucus Few /HPF Urine HCG, Qual Negative (Negative) Vital Signs 08/07/21 11:42 Temperature 98.3 F Pulse Rate 71 Respiratory 18 Rate Blood Pressure 140/94 Blood Pressure 140/94 [Right] O2 Sat by Pulse 99 Oximetry rocephin IM dc home with bactrim call pt if culture comes back requiring different antibiotic pt d/c home with discharge plan of care including diet, activity, medications and follow-up. She understands that she needs to follow-up with her OB or PCP after completing the antibiotic to make sure this infection is gone away. Patient verbalizes understanding I did reemphasize taking the medications because I suspect she did not take the last round that was given to her. - Differential Diagnosis Rule out /UTI Critical care attestation.: If time is entered above; I have spent that time in minutes in the direct care of this critically ill patient, excluding procedure time. ED Disposition Clinical Impression: UTI (urinary tract infection) Disposition: HOME / SELF CARE / HOMELESS Is pt being admited?: No Does the pt Need Aspirin: No Condition: Stable Instructions: Urinary Tract Infection, Adult, Abdominal Pain (ED) Additional Instructions: safe sex meds as ordered today motrin or tylenol for pain follow up with obmarky burton tell them you were treated x 2 for uti here in the ER they need to recheck your urine preg neg Prescriptions: Sulfamethoxazole/Trimethoprim [Bactrim DS TAB] 1 each PO BID #10 tablet Referrals: RAJ VILLALTA MD [Staff Physician] - 3-5 Days Forms: Work/School Release Form(ED) Time of Disposition: 11:52
[2021-08-07 12:35] LABS: Mucus,Urine FEW /HPF
[2021-08-07 12:37] LABS: Bilirubin,Urine Negative (Negative); Color,Urine Straw (Yellow)
[2021-08-07 12:38] LABS: Blood,Urine Small (Negative); HCG Qualitative,Urine Negative (Negative); PH,Urine 6.5 (5.0-7.0); Protein,Urine <15 mg/dL mg/dL (Negative); Urobilinogen,Urine < 2.0 mg/dL (<2.0)
[2021-08-07] MEDS ORDERED: LIDOCAINE-MPF (1%) 10 MG/1 ML VIAL 5 ML INFILTRATI ONE (12:42)
== END 2021-08-07 13:05 | disposition home or self-care (01) ==
LOC: ED 10:46
DX: N39.0 Urinary tract infection, site not specified (principal); I10 Essential (primary) hypertension
CPT/HCPCS: 81001; 81025; 87086; 96372; 99282; J0696; J3490; 99283